=== PATIENT | female | born 1950 | race Caucasian/White ===

== ENCOUNTER 2020-01-27 11:50 | Emergency (ER) | payer MEDICARE, OTHER ==
[~2020-01-27] VITALS: Ht 157.5 cm; Wt 94.0 kg
[2020-01-27 12:57] LABS: HEMATOCRIT 38.6 % (37.0-47.0); HEMOGLOBIN 11.3 g/dl (12.0-16.0); IMMATURE GRANULOCYTES 0.4 % (0.0-5.0); MEAN CELL VOLUME 93.5 fL CALC (80.0-100.0); MEAN CORPUSCULAR HGB 27.4 pG CALC (26.0-32.0); MEAN CORPUSCULAR HGB CONC 29.3 g/dL CAL (32.0-36.0); NEUT# 4.21 thou/uL (2.00-7.15); RED BLOOD COUNT 4.13 mill/uL (4.20-5.60); RED CELL DISTRI WIDTH 14.6 % (11.5-15.5)
[2020-01-27 13:08] LABS: ALBUMIN 3.6 g/dL (3.2-5.0); ALKALINE PHOSPHATASE 50 u/l (38-126); ANION GAP 11 (6-22 (CALC)); BILIRUBIN, TOTAL 0.4 mg/dL (0.0-1.4); BUN 9 mg/dL (8-23); BUN/CREATININE RATIO 16 (12-20 (CALC)); CARBON DIOXIDE 23 mmol/l (22-30); CHLORIDE 111 mmol/l (95-108); CREATININE 0.6 mg/dL (0.5-1.0); GFR > 60 ML/MIN (>=60 (CALC)); GFR FOR AFR.AMER. > 60 ML/MIN (>=60 (CALC)); POTASSIUM 4.6 mmol/l (3.5-5.1); SGOT/AST 30 u/l (9-36); SODIUM 140 mmol/l (137-146); TOTAL PROTEIN 6.2 g/dL (6.3-8.2)
[2020-01-27 15:25] VITALS: BP 194/79
== END 2020-01-27 15:26 | disposition home or self-care (01) ==
LOC: ED 11:50
PROVIDERS: Family Medicine
DX: I10 Essential (primary) hypertension (principal); E11.9 Type 2 diabetes mellitus without complications; Z86.73 Personal history of transient ischemic attack (TIA), and cerebral infarction without residual deficits; Z79.84 Long term (current) use of oral hypoglycemic drugs; Z20.828 Contact with and (suspected) exposure to other viral communicable diseases

== ENCOUNTER → 2020-01-27 | Day surgery (SDC) | payer MEDICARE, OTHER ==
[~2020-01-27] MED LIST: ASPIRIN81 MG PO; CARVEDILOL25 MG PO; GLIPIZIDE5 MG PO; JARDIANCE25 MG PO; LEVOTHYROXIN25 MC1 PO; LIPITOR80 M1 PO; LISINOPRIL20 MG PO; METFORMIN HCL1000 MG PO; MODAFINIL100 MG PO; MONTELUKAST SOD10 MG PO; NOVOLIN N100 UNIT/3 SC; OMEPRAZOLE DR40 MG PO; SERTRALINE50 MG PO
[2020-01-27 11:33] VITALS: BP 217/93
--- NOTE | 2020-02-03 10:14 | NUR ---
PER PHYSICIAN, ADVISED PATIENT OF COLONOSCOPY NEGATIVE RESULTS, RECOMMENDED REPEAT X 5 YEARS OR SOONER IF NEEDED. FOLLOW UP WITH PRIMARY CARE FOR CONTINUITY OF CARE. PATIENT AGREED WITH INFORMATION PROVIDED. NOTE AND REPORT FORWARDED TO PRIMARY CARE.
== END | disposition home or self-care (01) ==
LOC: ENDO 07:28
PROVIDERS: ATTEND Surgery
PROC: 0DBM8ZX Excision of Descending Colon, Via Natural or Artificial Opening Endoscopic, Diagnostic (ICD-10-PCS; principal; 2020-01-27)
DX: Z12.11 Encounter for screening for malignant neoplasm of colon (principal); D12.4 Benign neoplasm of descending colon; K57.30 Diverticulosis of large intestine without perforation or abscess without bleeding; K64.8 Other hemorrhoids; I10 Essential (primary) hypertension; E11.9 Type 2 diabetes mellitus without complications; Z79.84 Long term (current) use of oral hypoglycemic drugs; Z20.828 Contact with and (suspected) exposure to other viral communicable diseases